=== PATIENT | female | born 1960 | race African-American/Black ===

== ENCOUNTER 2016-11-14 17:26 | Inpatient (IN) | payer MEDICARE ==
[~2016-11-14] VITALS: Ht 198.1 cm; Wt 100.0 kg
--- NOTE | ~2016-11-14 | OP ---
PATIENT NAME: AALIYAH MEDINA MEDICAL RECORD: [id number] :64 LOCATION:D.M2 D.2132 ADMISSION DATE:11/14/16 SURGEON: VENTURA MONTAGUE MD DATE OF OPERATION: 11/18/2016 ADDENDUM DESCRIPTION OF PROCEDURE: Under general anesthesia, the patient was prepped and draped in a sterile manner. I accessed the fistula with micropuncture technique and placed two 6-Sri Lankan introducers in opposing directions. I used an AngioJet catheter over a Glidewire to lyse thrombus and systemically heparinized the patient. Balloon angioplasty was performed of a venous outflow stenosis as well as intra-fistula stenosis and to macerate thrombus. Thrombus was aspirated and flow was initially restored more than once, but each time failed probably due to the extensive thrombus load and the outflow stenoses. It would not stay open. I did pass a guidewire and catheter selectively across the arterial anastomosis into the brachial artery and performed a selective brachial arteriogram before and after thrombolysis and thrombectomy to rule out arterial emboli and there were none. Flow to the hand was good. There was adequate flow in the brachial artery above and below the fistula and into the radial and ulnar arteries distally. In the next paragraph, there is one blank where the word should be "the Dacron cuff." TRANSINT:[id number] Voice Confirmation ID: [id number] DOCUMENT ID: [id number] VENTURA MONTAGUE MD CC: [id number] DICTATION DATE: 11/24/16 1534 PRIOR AUTHORIZATION TECHNICIAN: 11/24/16 2321 DIS IN 11/20/16 [facility] [address] [place] [address]
--- NOTE | 2016-11-14 18:20 | NUR ---
PT RECEIVED TO ROOM FROM ER. RR EVEN AND UNLABORED, BP IS ELEVATED. PT DENIES MYLES. REPORTS LEFT ARM PAIN ABOVE FISTULA. PT ALERT AND ORIENTED X4. WILL CTM PT CONDITION.
--- NOTE | 2016-11-14 18:35 | NUR ---
PAGED RACHAEL WHITEHEAD, PATIENT BP IS 204/91. 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 NO S/S AT THIS TIME.
--- NOTE | 2016-11-14 19:01 | NUR ---
SPOKE WITH RACHAEL, CLONODINE 0.1MG PO ORDERED AND NORCO ORDERED FOR PAIN.
--- NOTE | 2016-11-14 19:05 | NUR ---
DR TAYLOR NOTIFIED THAT PATIENT IS HERE.
[2016-11-14 19:56] LABS: BASOPHILS 0.2 % (0-2); HEMOGLOBIN 10.2 g/dL (12-16); IMMATURE GRANULOCYTES 0.3 % (0-5); LYMPHOCYTES 17.8 % (15-50); MCH 27.8 pg (26.0-34.0); MCHC 32.9 g/dL (31.0-37.0); MCV 84.5 fL (80.0-100.0); MEAN PLATELET VOLUME 11.9 fL (7.4-10.4); MONOCYTES 7.2 % (2-11); NEUTROPHILS 73.5 % (40-80); PLATELET COUNT 159 10x3/uL (130-400); RBC 3.67 10x6/uL (4.00-5.40); RDW 13.3 % (11.5-14.5); WBC 6.2 10x3/uL (4.8-10.8)
[2016-11-14 20:11] VITALS: BP 198/93
[2016-11-14 20:18] LABS: ALBUMIN 3.3 g/dL (3.4-5.0); BILIRUBIN - TOTAL 0.31 mg/dL (0.2-1.3); CALCIUM 7.7 mg/dL (8.5-10.1); CARBON DIOXIDE 18.9 mmol/L (21.0-32.0); CREATININE - SERUM 12.7 mg/dL (0.6-1.3); PROTEIN - SERUM 7.5 g/dL (6.4-8.2)
[2016-11-14 20:22] LABS: POTASSIUM - SERUM 6.9 mmol/L (3.5-5.1)
--- NOTE | 2016-11-14 20:51 | NUR ---
PT AWAKE, ALERT, ORIENTED, LEFT ARM SWOLLEN AND PAINFUL. PT DENIES ANY NEEDS AT THIS TIME. PT DOES REQUIRES MODERATE ASSISTANCE AT THIS TIME R/T HER RT BKA AND GENERALIZED WEAKNESS. CONTINUE TO MONITOR PT CLOSELY. BED LOW, CALL LIGHT IN REACH, SIDE RAILS X 2, HOB 30 DEGREES.
--- NOTE | 2016-11-14 21:31 | NUR ---
CONSENTS SIGNED FOR TRIALYSIS PLACEMENT, TELEMETRY PLACED, DR. TAYLOR CONSULTED AND ON HIS WAY TO DO TRIALYSIS PLACEMENT.
--- NOTE | 2016-11-14 22:51 | NUR ---
TRIALYSIS PLACED TO RT IJ BY DR. TAYLOR. PT CURRENTLY DIALYZING ORDERED. CONTINUE TO MONITOR PT CLOSELY. BED LOW, CALL LIGHT IN REACH, SIDE RAILS X 2, HOB 30 DEGREES. PT TOLERATED TRIALYSIS PLACEMENT WELL.
[2016-11-14 23:05] VITALS: BP 204/91; BMI 25.4
[2016-11-15] MEDS ORDERED: HYDROCODON-ACE1 EAC7 PO (00:26)
[2016-11-15] MEDS ORDERED: CATAPRES0.1 MG PO (00:26)
[2016-11-15] MEDS ORDERED: KAYEXALATE15 G/60 ML PO (00:27)
[2016-11-15] MEDS ORDERED: LOPRESSOR25 MG PO (00:28)
[2016-11-15] MEDS ORDERED: PROTONIX40 MG PO (00:28)
[2016-11-15] MEDS ORDERED: NORVASC10 MG PO (00:28)
[2016-11-15] MEDS ORDERED: GLYBURIDE5 M1 PO (00:29)
--- NOTE | 2016-11-15 04:14 | NUR ---
PT IS C/O BEING HUNGRY, SHE HAS NOT HAD ANYTHING TO EAT SINCE 0630 YESTERDAY MORNING. TURKEY SANDWICH GIVEN TO PT PER REQUEST. CONTINUE TO MONITOR PT CLOSELY.
[2016-11-15 05:15] VITALS: BP 166/88
--- NOTE | 2016-11-15 05:23 | NUR ---
PT IS AWAKE, ALERT, ORIENTED, STATES SHE IS FEELING MUCH BETTER, REQUESTING PAIN MEDICATION FOR HER LT ARM. DENIES ANY OTHER NEEDS. CONTINUE TO MONITOR CLOSELY. BED LOW, CALL LIGHT IN REACH, SIDE RAILS X 2, HOB 30 DEGREES.
[2016-11-15] MEDS ORDERED: LANTUS INSULIN10 ML SC (05:48)
[2016-11-15] MEDS ORDERED: AMBIEN10 MG PO (05:49)
[2016-11-15] MEDS ORDERED: NEURONTIN 300300 MG PO (05:49)
[2016-11-15] MEDS ORDERED: LIPITOR20 MG (05:50)
[2016-11-15] MEDS ORDERED: MYSOLINE 50 MG50 MG PO (05:51)
[2016-11-15 06:21] LABS: BASOPHILS 0 % (0-2); EOSINOPHILS 0.7 % (0-7); HEMATOCRIT 27.8 % (36.0-48.0); HEMOGLOBIN 9.2 g/dL (12-16); IMMATURE GRANULOCYTES 0.2 % (0-5); LYMPHOCYTES 16.8 % (15-50); MCHC 33.1 g/dL (31.0-37.0); MCV 84.8 fL (80.0-100.0); MEAN PLATELET VOLUME 11.9 fL (7.4-10.4); MONOCYTES 8.9 % (2-11); NEUTROPHILS 73.4 % (40-80); PLATELET COUNT 144 10x3/uL (130-400); RBC 3.28 10x6/uL (4.00-5.40); RDW 13.4 % (11.5-14.5); WBC 5.6 10x3/uL (4.8-10.8)
[2016-11-15 06:37] LABS: CALCIUM 7.5 mg/dL (8.5-10.1); PHOSPHOROUS 4.8 mg/dL (2.5-4.9)
[2016-11-15 06:38] LABS: ANION GAP 14.3 mmol/L (8-16); CARBON DIOXIDE 26.1 mmol/L (21.0-32.0); CREATININE - SERUM 8.4 mg/dL (0.6-1.3); POTASSIUM - SERUM 4.4 mmol/L (3.5-5.1)
--- NOTE | 2016-11-15 08:50 | NUR ---
CLONIDINE ADMINISTERED FOR SBP OF 203
--- NOTE | 2016-11-15 09:28 | NUR ---
MEDICATED FOR PAIN AND NAUSEA VIA TRIALYSIS AT THIS TIME. CALL LIGHT WITHIN REACH. NO DISTRESS.
[2016-11-15 09:34] VITALS: BP 203/107
--- NOTE | 2016-11-15 11:54 | NUR ---
FSBS 113. NO INSULIN COVERAGE PER SLIDING SCALE.
[2016-11-15 12:35] VITALS: Ht 198.1 cm; Wt 100.0 kg
[2016-11-15 13:51] VITALS: BP 132/88
--- NOTE | 2016-11-15 14:15 | NUR ---
RESTING IN BED WITH EYES CLOSED. EASILY AROUSED. SKIN WARM AND DRY. INCONTINENT CARE PROVIDED. CALL LIGHT WITHIN REACH. NO DISTRESS.
[2016-11-15 16:53] VITALS: BP 189/101
--- NOTE | 2016-11-15 17:02 | NUR ---
FSBS 76. NO INSULIN COVERAGE.
--- NOTE | 2016-11-15 17:16 | NUR ---
SITTING UP IN BED, 100 % PM MEAL CONSUMED. NO DISTRESS.
[2016-11-15 19:00] VITALS: BP 144/72
--- NOTE | 2016-11-15 20:39 | NUR ---
ALERT/ORIENTED. BEDTIME MEDS GIVEN. REQUESTED PAIN MEDS GIVEN FOR PAIN 8/10 TO LEFT UPPER ARM WHERE HER AVF IS WARM/SWOLLEN AND TENDER TO TOUCH. GAVE BUPRENEX 0.2MG SIVP VIA TRIALYSIS TO RIGHT IJ. HEMODIALYSIS PORTS ARE CAPPED AND CLAMPED. FSBS 91, HS SNACK TO BE GIVEN. SEE ASSESSMENT. MONITOR AND CPOC.
[2016-11-16] VITALS: BP 197/92
--- NOTE | 2016-11-16 01:31 | NUR ---
RESTING WITH NO DISTRESS. RIGHT IJ TRIALYSIS SALINE LOCKED. CPOC.
[2016-11-16 04:00] VITALS: BP 196/96
[2016-11-16 06:17] LABS: BASOPHILS 0.2 % (0-2); EOSINOPHILS 1.6 % (0-7); HEMATOCRIT 27.4 % (36.0-48.0); IMMATURE GRANULOCYTES 0.2 % (0-5); LYMPHOCYTES 33.5 % (15-50); MCHC 32.8 g/dL (31.0-37.0); MCV 85.4 fL (80.0-100.0); MEAN PLATELET VOLUME 11.6 fL (7.4-10.4); MONOCYTES 10.8 % (2-11); NEUTROPHILS 53.7 % (40-80); PLATELET COUNT 149 10x3/uL (130-400); RBC 3.21 10x6/uL (4.00-5.40); RDW 13.3 % (11.5-14.5); WBC 5.5 10x3/uL (4.8-10.8)
[2016-11-16 06:35] LABS: ANION GAP 16.6 mmol/L (8-16); CALCIUM 7.3 mg/dL (8.5-10.1); CARBON DIOXIDE 25.3 mmol/L (21.0-32.0); CREATININE - SERUM 9.9 mg/dL (0.6-1.3); POTASSIUM - SERUM 3.9 mmol/L (3.5-5.1)
[2016-11-16 06:41] LABS: PHOSPHOROUS 6.7 mg/dL (2.5-4.9)
--- NOTE | 2016-11-16 07:10 | NUR ---
RECEIVED REPORT. ASSUMED CARE OF PATIENT. CALL LIGHT WITHIN REACH. RESTING IN SUPINE POSITION WITH EYES CLOSED. EASILY AROUSED. DENIES NEEDS AT THIS TIME. NO DISTRESS.
[2016-11-16 08:13] VITALS: BP 167/81
--- NOTE | 2016-11-16 11:51 | NUR ---
FSBS 148. NO INSULIN COVERAGE REQUIRED PER SLIDING SCALE.
[2016-11-16 11:58] VITALS: BP 157/81
[2016-11-16 15:40] VITALS: BP 132/77
--- NOTE | 2016-11-16 16:56 | NUR ---
FSBS 97. NO INSULIN ADMINISTRATION PER SLIDING SCALE.
--- NOTE | 2016-11-16 17:55 | NUR ---
PATIENT STATES SHE FEELS LIKE HER SUGAR IS DROPPING. FSBS 72, DOWN FROM 96 AT 1630 AND PATIENT HAS EATEN PM MEAL. QUESTIONED PATIENT IS SHE ADHERES TO DIABETIC DIET AT HOME AND SHE STATES THAT SHE DOES NOT. WE ARE PROVIDING DIABETIC DIET AND INSULIN MAY BE TOO MUCH FOR HER. GLYBURIDE HELD DUE TO FSBS DROPPING FROM LANTUS GIVEN THIS AM. PATIENT CONSUMING CHOCOLATE PUDDING AT THIS TIME. CALL LIGHT WITHIN REACH. NO DISTRESS.
[2016-11-16 19:20] VITALS: BP 166/81
--- NOTE | 2016-11-16 19:30 | NUR ---
PT RESTING IN BED. ALERT/ORIENTED. RIGHT IJ TRIALYSIS WITH C/D/DRESSING. RESERVE LEFT ARM FROM SURGERY DONE TO LEFT AVF. 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 SR PER TELEMETRY. NO DISTRESS. SEE SHIFT ASSESSMENT. CPOC.
[2016-11-17 00:40] VITALS: BP 143/68
[2016-11-17 04:30] VITALS: BP 174/74
[2016-11-17 06:34] LABS: BASOPHILS 0 % (0-2); EOSINOPHILS 2.7 % (0-7); HEMATOCRIT 25.9 % (36.0-48.0); HEMOGLOBIN 8.5 g/dL (12-16); IMMATURE GRANULOCYTES 0.2 % (0-5); LYMPHOCYTES 30.9 % (15-50); MCH 28.1 pg (26.0-34.0); MCHC 32.8 g/dL (31.0-37.0); MCV 85.5 fL (80.0-100.0); MONOCYTES 11.2 % (2-11); PLATELET COUNT 170 10x3/uL (130-400); RBC 3.03 10x6/uL (4.00-5.40); RDW 13.4 % (11.5-14.5); WBC 4.7 10x3/uL (4.8-10.8)
[2016-11-17 06:47] LABS: ANION GAP 18.3 mmol/L (8-16); CALCIUM 7.4 mg/dL (8.5-10.1); CARBON DIOXIDE 24.2 mmol/L (21.0-32.0); PHOSPHOROUS 7.2 mg/dL (2.5-4.9); POTASSIUM - SERUM 3.5 mmol/L (3.5-5.1)
[2016-11-17 07:02] LABS: APTT 37.2 SECONDS (22.8-39.4); INR 0.89 (0.85-1.17); PROTIME 11.9 SECONDS (11.6-15.0)
--- NOTE | 2016-11-17 07:30 | NUR ---
AM ROUNDS- PT IN BED, DENIES ANY NEEDS AT THIS TIME. INFOMRED PT ABOUT BEING NPO UNTIL SEEN BY SURGERY DOCTOR. RESP EVEN AND UNLABORED, RT IJ TRIALYSIS SL. BED LOW AND WHEELS LOCKED, BEDSIDE RAILS X2, CALL LIGHT IN REACH, NAD NOTED, WILL CONTINUE TO MONITOR.
[2016-11-17 08:00] VITALS: BP 175/72
--- NOTE | 2016-11-17 09:35 | NUR ---
CALLED DR. CEJA OFFICE, SPOKE WITH DESIREE, ASKED DESIREE TO CHECK WITH DR. MONTAGUE IF HE IS PLANNING ON DOING ANYTHING WITH WITH ADAM TODAY BECAUSE PT WANTS TO KNOW IF SHE CAN EAT. DESIREE STATED THAT SHE WOULD CALL ME BACK.
--- NOTE | 2016-11-17 09:50 | NUR ---
PT TRANSFERED TO DIALYSIS VIA BED, NAD NOTED.
--- NOTE | 2016-11-17 12:46 | NUR ---
PT TRANSFERED BACK FROM DIALYSIS. LUNCH TRAY ORDERED FOR PT. PT DENIES ANY NEEDS AT THIS TIME. CALL LIGHT IN REACH, NAD NOTED, WILL CONTINUE TO MONITOR.
--- NOTE | 2016-11-17 16:13 | NUR ---
BLOOD SUGAR OF 138, NO COVERAGE NEEDED PER S/S. PT ALSO REFUSED TO TAKE DIABETA . STATED " I DONT WANT MY BLOOD SUGAR TO DROP LIKE IT DID LAST NIGHT". PT IN BED, DENIES ANY NEEDS AT THIS TIME. CALL LIGHT IN [facility], EROS NOTED, WILL CONTINUE TO MONITOR.
[2016-11-17 17:18] VITALS: BP 129/67
[2016-11-17 19:00] VITALS: BP 150/79
[2016-11-18] VITALS: BP 133/67
[2016-11-18 04:03] VITALS: BP 135/70
[2016-11-18 06:10] LABS: BASOPHILS 0.3 % (0-2); EOSINOPHILS 3.3 % (0-7); HEMATOCRIT 27.3 % (36.0-48.0); HEMOGLOBIN 8.8 g/dL (12-16); LYMPHOCYTES 34.7 % (15-50); MCH 27.9 pg (26.0-34.0); MCHC 32.2 g/dL (31.0-37.0); MCV 86.7 fL (80.0-100.0); MEAN PLATELET VOLUME 11.6 fL (7.4-10.4); MONOCYTES 11.8 % (2-11); NEUTROPHILS 49.9 % (40-80); PLATELET COUNT 184 10x3/uL (130-400); RBC 3.15 10x6/uL (4.00-5.40); RDW 13.4 % (11.5-14.5); WBC 3.6 10x3/uL (4.8-10.8)
[2016-11-18 06:56] LABS: ANION GAP 16.7 mmol/L (8-16); CALCIUM 7.4 mg/dL (8.5-10.1); CARBON DIOXIDE 26.9 mmol/L (21.0-32.0); CREATININE - SERUM 8.8 mg/dL (0.6-1.3); POTASSIUM - SERUM 3.6 mmol/L (3.5-5.1)
[2016-11-18 06:59] LABS: PHOSPHOROUS 5.3 mg/dL (2.5-4.9)
--- NOTE | 2016-11-18 07:32 | NUR ---
AM ROUNDS- PT IN BED, TALKING ON THE PHONE. BED LOW AND WHEELS LOCKED, BEDSIDE RAILS X2. RESP EVEN AND UNLABORED. PT DENIES ANY NEEDS AT THIS TIME. CALL LIGHT IN REACH, NAD NOTED, WILL CONTINUE TO MONITOR.
[2016-11-18 08:00] VITALS: BP 145/86
--- NOTE | 2016-11-18 11:34 | NUR ---
BLOOD SUGAR OF 136, NO COVERAGE NEEDED PER S/S. PT IN BED, DENIES ANY NEEDS AT THIS TIME. CALL LIGHT IN REACH, NAD NOTED, WILL CONTINUE TO MONITOR.
[2016-11-18 12:00] VITALS: BP 161/85
--- NOTE | 2016-11-18 13:41 | NUR ---
PT TRANSFERED TO OR VIA BED, NAD NOTED.
--- NOTE | 2016-11-18 16:31 | OP ---
PATIENT NAME: AALIYAH MEDINA MEDICAL RECORD: [id number] :64 LOCATION:D.M2 D.2132 ADMISSION DATE:11/14/16 SURGEON: ALOK TAYLOR MD DATE OF OPERATION: 11/14/2016 PREOPERATIVE DIAGNOSES: 1. End-stage renal disease. 2. Acute hyperkalemia. 3. Diabetes mellitus. 4. Coronary artery disease. 5. Peripheral vascular disease. 6. Hypertension. POSTOPERATIVE DIAGNOSES: 1. End-stage renal disease. 2. Acute hyperkalemia. 3. Diabetes mellitus. 4. Coronary artery disease. 5. Peripheral vascular disease. 6. Hypertension. PROCEDURE: Right IJ 12-1/2 cm Trialysis catheter placement. SURGEON: Alok Taylor MD. REPORT OF PROCEDURE: The patient's right neck was prepped and draped in sterile fashion. A 5 cc of 1% lidocaine was infused into the subcutaneous tissues. Using ultrasound guidance, a needle was used to cannulate the right internal jugular vein. The guidewire was advanced with ease. Over this wire, a dilator was placed followed by the Trialysis catheter. The catheter aspirated nonpulsatile dark blood and flushed easily in all 3 ports. This was sutured into place with 3-0 silk ties and dressed appropriately. COMPLICATIONS: None. CONDITION: Stable. ANESTHESIA: Local. BLOOD LOSS: Minimal. Procedure done at the bedside. TRANSINT:[id number] Voice Confirmation ID: [id number] DOCUMENT ID: [id number] ALOK TAYLOR MD at 1631 CC: [id number] DICTATION DATE: 11/14/162232 ENVIRONMENTAL SCIENCE INSTRUCTOR: 11/15/16 0948 ADM IN [facility] [address] [place] [address]
--- NOTE | 2016-11-18 17:17 | NUR ---
UNABLE TO OBTAIN BP UPON ARRIVAL TO PACU AFTER MULTIPLE ATTEMPTS. CUFFS CHANGED, CORDS CHANGED, MACHINES CHANGED. OBTAINED BP ON [employer]. BP TOO HIGH TO REGISTER ON OTHER MACHINES.
--- NOTE | 2016-11-18 17:57 | NUR ---
RECEIVED REPORT FROM OR FROM ROXANE WALLACE.
--- NOTE | 2016-11-18 18:22 | NUR ---
RECEIVED PT BACK TO ROOM 213, VIA BED, VITAL SIGNS STABLE, RT CHEST HEMISPLIT NOTED, WITH BLUE PORT ACCESS, INFUSING NS AT KVO. PT DENIES ANY NEEDS OR DISCOMFORTS. PT DENIES ANY NEEDS AT THIS TIME. CALL LIGHT IN REACH, NA DNOTED, WILL CONTINUE TO MONITOR.
--- NOTE | 2016-11-18 19:55 | NUR ---
PT ASLEEP.RESPIRATIONS EVEN AND UNLABORED. V/S 170/75 HR 95. IV INFUSING NS AT 5ML/HR TO RIGHT HEMESPLIT. PT WOKE TO LIGHT TOUCH. ASKED FOR SOMETHING FOR PAIN FOR HER NECK. WILL CHECK ORDERS. PT DENIES ANY OTHER NEEDS. NO S/S OF DISTRESS. CALL LIGHT IN REACH. WILL CPOC
--- NOTE | 2016-11-18 22:37 | NUR ---
PT RESTING IN BED. CHANGED LINEN AND GOWN. PT HAD AN ACCIDENT. PT BP IS 193/82 WILL GET PRN CATAPRES. PT DENIES ANY NEEDS. NO S/S OF DISTRESS. WILL CPOC
--- NOTE | 2016-11-18 23:20 | NUR ---
PT BLOOD SUGAR IS 246, PT REFUSES ANY INSULIN. STATES SHE WILL DROP OVER NIGHT AND BE LOW IN THE MORNING. PT STATES SHE WILL CALL IF SHE FEELS SHE NEEDS HER SUGAR CHECKED. PT DENIES ANY OTHER NEEDS. NO S/S OF DISTRESS. WILL CPOC
[2016-11-19] VITALS: BP 125/98
[2016-11-19 04:37] VITALS: BP 137/69
[2016-11-19 05:56] LABS: BASOPHILS 0 % (0-2); EOSINOPHILS 0 % (0-7); HEMATOCRIT 26.9 % (36.0-48.0); HEMOGLOBIN 8.7 g/dL (12-16); IMMATURE GRANULOCYTES 0.2 % (0-5); LYMPHOCYTES 10.5 % (15-50); MCHC 32.3 g/dL (31.0-37.0); MCV 86.5 fL (80.0-100.0); MEAN PLATELET VOLUME 11.3 fL (7.4-10.4); NEUTROPHILS 82.3 % (40-80); PLATELET COUNT 219 10x3/uL (130-400); RBC 3.11 10x6/uL (4.00-5.40); RDW 13.2 % (11.5-14.5)
[2016-11-19 06:02] LABS: WBC 4.7 10x3/uL (4.8-10.8)
--- NOTE | 2016-11-19 06:03 | NUR ---
PT RESTING IN BED. C/O PAIN 8/10 IN NECK. PAIN MEDS GIVEN ORDERED. PT DENIES ANY NEEDS. NO S/S OF DISTRESS. WILL CPOC
[2016-11-19 06:11] LABS: ANION GAP 17.6 mmol/L (8-16); CALCIUM 7.2 mg/dL (8.5-10.1); CARBON DIOXIDE 25.3 mmol/L (21.0-32.0); CREATININE - SERUM 10.7 mg/dL (0.6-1.3)
[2016-11-19 06:15] LABS: POTASSIUM - SERUM 4.9 mmol/L (3.5-5.1)
--- NOTE | 2016-11-19 07:45 | NUR ---
AM ROUNDS COMPLETED. INTRODUCED MYSELF TO PT PRIMARY RN FOR TODAYS SHIFT. PT A&O RESTING QUIETLY IN BED. SHIFT ASSESSMENT COMPLETED. ASSISTED PT ONTO BEDPAN. NO FURTHER NEEDS AT THIS TIME. WILL CPOC.
[2016-11-19 08:42] VITALS: BP 131/68
--- NOTE | 2016-11-19 09:26 | NUR ---
PT GOING DOWN TO DIALYSIS. PT READY AND DENIES ANY NEEDS. WILL CPOC.
--- NOTE | 2016-11-19 13:00 | NUR ---
PT BACK FROM DIALYSIS. VSS AND RESTING QUIETLY. DENIES ANY CURRENT NEEDS. WILL CTM.
[2016-11-19] MEDS ORDERED: TUMS500 MG PO (15:46)
--- NOTE | 2016-11-19 16:18 | NUR ---
[place] HAND WRITTEN SCRIPT PLACED IN CHART FOR DISCHARGE TOMORROW.
--- NOTE | 2016-11-19 17:16 | NUR ---
Patient Name: AALIYAH MEDINA Admission Status: ER Accout number: [id number] Admission Date: 11-14-2016 : 1960 Admission Diagnosis:UNSP COMP OF CARDIAC AND VASCULAR PROSTH DEV/GRFT, INIT Attending: Chuy Avina Current LOS: 5 Anticipated DC Date: 11-19-2016 Planned Disposition: Home Primary Insurance: MEDICARE A & B Discharge Planning Comments: * Is the patient Alert and Oriented? Yes 0 * How many steps to enter\\exit or inside your home? RAMP 0 * PCP DR. JAYLON NEWMAN 0 * Pharmacy [facility] 0 * Preadmission Environment Home with Family 0 * ADLs Independent 0 * Equipment Glucometer Other Walker 0 * Other Equipment [employer], [place] - MEDICAL EQUIPMENT PROVIDER 0 * List name and contact numbers for known caregivers / representatives who currently or will assist patient after discharge: TAVIA MEDINA, SPOUSE, 0 * Community resources currently utilized Other 0 * Please name any agencies selected above. OUTPATIENT DIALYSIS, [facility], [facility], [address], [place], [place] TRANSPORT 0 * Additional services required to return to the preadmission environment? No 0 * Can the patient safely return to the preadmission environment? Yes 0 * Has this patient been hospitalized within the prior 30 days at any hospital? No 0 CM MET WITH PT IN ROOM TO DISCUSS DISCHARGE PLANNING AND NEEDS. PT REPORTS LIVING AT HOME INDEPENDENTLY WITH JUVENILE SON FOR WHOM SHE IS A CAREGIVER. PT HAS GLUCOMETER, SCOOTER, WALKER, PROVIDER IS P & M IN [place]. PT REPORTS HAVING ALL NEEDED MEDICAL EQUIPMENT AND NO OUTSIDE SERVICES ASSISTING IN THE HOME. PT REPORTS HER SPOUSE DOES NOT LIVE WITH HER BUT IS "IN AND OUT" AND ASSISTS WITH THINGS NEEDED AROUND THE HOUSE. PT ATTENDS DIALYSIS IN [place], [facility], [address], WITH [facility] IN [place] SC[facility] TRANSPORTATION. CM DISCUSSED AVAILABILITY OF HOME HEALTH, REHAB SERVICES AND MEDICAL EQUIPMENT. PT DENIES DISCHARGE NEEDS,; CM OBSERVED THAT IT IS TOO LATE FOR [facility] IN [place] [employer] BUS TRANSPORT ARRANGEMENTS TO [place]. PT REPORTS HER SPOUSE WILL PICK HER UP FOR DISCHARGE HOME TOMORROW. IMPORTANT MESSAGE FROM MEDICARE PROVIDED AND EXPLAINED. Tire Inspector: Ozzie Cavanaugh
--- NOTE | 2016-11-19 18:04 | NUR ---
PT SITTING UP IN BED RESTING QUIETLY. PT STATES SHE HAS HAD A GOOD DAY OVERALL AND IS READY FOR DISCHARGE HOPING ON TOMORROW. PT DENIES ANY CURRENT PAIN OR NEEDS AT THIS TIME. CL IN REACH, BED IN LOWEST, SIDE RAILS X2 AND BUILT IN BED ALARM ON. WILL CPOC.
--- NOTE | 2016-11-19 19:20 | NUR ---
PT RESTING IN BED. DENIES ANY NEEDS AT THIS TIME. NO S/S OF DISTRESS.WILL CPOC
[2016-11-19 20:00] VITALS: BP 129/61
--- NOTE | 2016-11-19 21:24 | NUR ---
PT ASKS FOR A FORK TO EAT A SALAD. PT C/O PAIN. PT DENIES ANY NEEDS. NO S/S OF DISTRESS. WILL CPOC
--- NOTE | 2016-11-20 01:48 | NUR ---
PT C/O NOT BEING ABLE TO SLEEP. ASKS FOR SLEEPING MEDS. AMBIEN GIVEN. NO OTHER NEEDS. NO S/S OF DISTRESS. WILL CPOC
[2016-11-20 03:55] VITALS: BP 119/61
[2016-11-20 04:00] VITALS: BP 116/77
[2016-11-20 07:53] VITALS: BP 117/78
--- NOTE | 2016-11-20 08:15 | NUR ---
EATING BREAKFAST DENIES ANY NEEDS OR DISCOMFORT NAD NOTED
--- NOTE | 2016-11-20 10:06 | NUR ---
PATIENT IS ALERT AND RESTING WELL IN BED WATCHING TV, STATES SHE HOPES TO GO HOME TODAY. DENIES ANY PAIN OR NEEDS AT THIS TIME. CALL LIGHT IS IN REACH.
--- NOTE | 2016-11-20 12:05 | NUR ---
Patient discharged to home via wheelchair with spouse. Discharge instructions and rx for norco given to patient, patient verbalizes understanding.
== END 2016-11-20 12:08 | disposition home or self-care (01) | DRG 252 ==
LOC: D.ER 17:26 → EDSTATUS 17:53 → D.M2 17:59
PROVIDERS: ADMIT Internal Medicine Nephrology
PROC: 02HV33Z Insertion of Infusion Device into Superior Vena Cava, Percutaneous Approach (ICD-10-PCS; principal; 2016-11-14)
PROC: B548ZZA Ultrasonography of Superior Vena Cava, Guidance (ICD-10-PCS; 2016-11-14)
PROC: 03C83ZZ Extirpation of Matter from Left Brachial Artery, Percutaneous Approach (ICD-10-PCS; 2016-11-14)
PROC: 03783ZZ Dilation of Left Brachial Artery, Percutaneous Approach (ICD-10-PCS; 2016-11-18)
PROC: B51W1ZZ Fluoroscopy of Dialysis Shunt/Fistula using Low Osmolar Contrast (ICD-10-PCS; 2016-11-18)
PROC: 02HV33Z Insertion of Infusion Device into Superior Vena Cava, Percutaneous Approach (ICD-10-PCS; 2016-11-18)
PROC: B5181ZA Fluoroscopy of Superior Vena Cava using Low Osmolar Contrast, Guidance (ICD-10-PCS; 2016-11-18)
DX: T82.858A Stenosis of other vascular prosthetic devices, implants and grafts, initial encounter (principal); N18.6 End stage renal disease; I12.0 Hypertensive chronic kidney disease with stage 5 chronic kidney disease or end stage renal disease; Y83.8 Other surgical procedures as the cause of abnormal reaction of the patient, or of later complication, without mention of misadventure at the time of the procedure; E11.22 Type 2 diabetes mellitus with diabetic chronic kidney disease; Z99.2 Dependence on renal dialysis; Z79.4 Long term (current) use of insulin; I25.10 Atherosclerotic heart disease of native coronary artery without angina pectoris; D63.1 Anemia in chronic kidney disease; E83.39 Other disorders of phosphorus metabolism; E87.5 Hyperkalemia

== ENCOUNTER → 2018-03-18 08:29 | Outpatient (CLI) | payer MEDICARE ==
[2016-11-15 12:35] VITALS: BMI 25.4
[~2018-03-18 08:29] MED LIST: AMBIEN10 MG PO; CATAPRES0.1 MG PO; GLYBURIDE5 M1 PO; HYDROCODON-ACE1 EAC7 PO; KAYEXALATE15 G/60 ML PO; LANTUS INSULIN10 ML SC; LIPITOR20 MG; LOPRESSOR25 MG PO; MYSOLINE 50 MG50 MG PO; NEURONTIN 300300 MG PO; NORVASC10 MG PO; PROTONIX40 MG PO; TUMS500 MG PO
== END | disposition home or self-care (01) ==
LOC: D.CT 02-09 10:30
DX: N18.6 End stage renal disease (principal); Z99.2 Dependence on renal dialysis

== ENCOUNTER 2018-05-04 09:55 | Day surgery (SDC) | payer MEDICARE ==
[~2018-05-04] VITALS: Ht 198.1 cm; Wt 77.1 kg
[2018-05-04 10:37] LABS: BASOPHILS 0.3 % (0-2); EOSINOPHILS 1.1 % (0-7); HEMATOCRIT 34.6 % (36.0-48.0); HEMOGLOBIN 10.6 g/dL (12-16); LYMPHOCYTES 39.5 % (15-50); MCH 27.8 pg (26.0-34.0); MCHC 30.6 g/dL (31.0-37.0); MCV 90.8 fL (80.0-100.0); MEAN PLATELET VOLUME 11.6 fL (7.4-10.4); MONOCYTES 10.4 % (2-11); NEUTROPHILS 48.7 % (40-80); PLATELET COUNT 192 10x3/uL (130-400); RBC 3.81 10x6/uL (4.00-5.40); WBC 3.7 10x3/uL (4.8-10.8)
[2018-05-04 10:50] LABS: ANION GAP 16.8 mmol/L (8-16); CREATININE - SERUM 6.6 mg/dL (0.6-1.3); POTASSIUM - SERUM 4.8 mmol/L (3.5-5.1)
[2018-05-04 10:57] LABS: PROTIME 12.7 SECONDS (11.6-15.0)
[2018-05-04] MEDS ORDERED: ATARAX 25 MG TA25 MG PO (13:03)
[2018-05-04 13:19] VITALS: Ht 198.1 cm; Wt 77.1 kg
[2018-05-04] MEDS ORDERED: HYDROCODON-ACE1 EAC7 PO (18:32)
--- NOTE | 2018-05-04 19:09 | NUR ---
UPON ARRIVAL TO PACU PATIENT'S BP WAS ELEVATED. RONY WHITEHEAD CRNA ADMINISTERED HYDRALAZINE 10MG X1 IN PACU. WILL CONTINUE TO MONITOR.
--- NOTE | 2018-05-04 21:15 | NUR ---
2109 PT'S FAMILY RETURNED, BROUGHT PT Bebeto BURNETT, PT ATE, RELEASED IN WC.
--- NOTE | 2018-05-06 11:50 | OP ---
PATIENT NAME: IZABELLA RUSH MEDICAL RECORD: [id number] :64 LOCATION:[facility] ADMISSION DATE: SURGEON: VENTURA MONTAGUE MD DATE OF OPERATION: 05/04/2018 REFERRED BY: Dr. Mckay. PREOPERATIVE DIAGNOSIS: End-stage renal disease and dependence on hemodialysis and thrombosed arteriovenous graft in the left arm. POSTOPERATIVE DIAGNOSES: End-stage renal disease and dependence on hemodialysis and thrombosed arteriovenous graft in the left arm and axillary vein and subclavian vein stenoses. OPERATION PERFORMED: Open exposure and cannulation of left axillary vein and performance of intraoperative left axillary venogram followed to the superior vena cava and then open exposure and direct cannulation of the brachial artery just above the antecubital space and a brachial artery arteriogram and then followed by implantation of Artegraft between the axillary vein and the axillary artery. SURGEON: Ventura Montague MD ANESTHESIA: General with LMA per COLD HEADER OPERATOR. PREOPERATIVE NOTE: Izabella Rush is a 57-year-old -[place] female from [place], [place]. She has high blood pressure, diabetes, coronary artery disease, peripheral artery disease, and end-stage renal disease and dependence on hemodialysis and prior AV graft thromboses. She has had at least 2 PTFE grafts in the left arm over the last 4 or 5 years, both of which have thrombosed. She has a thrombus cephalic vein and cephalic arch which was previously stented and the stent is known to protrude into the subclavian vein. The patient needs long-term dialysis. She has been dialyzing with a catheter in the right internal jugular position, now for almost a year. I am going to try to implant another graft in her left arm. Hopefully, I can get above the operative changes from her previous grafts. I do think that because of the number of procedures she has had and central lines and stents, etc. that I should do a venogram and I plan also to do a brachial arteriogram because of the potential for brachial artery stenosis from prior arterial graft anastomosis. DESCRIPTION OF PROCEDURE: Under general anesthesia in supine position, the patient was prepped and draped in sterile manner. Previous vertical incision in the upper arm was reopened and extended into the axilla. The patient's axillary vein was dissected and exposed from high in the axilla down distally and 2 separate PTFE to vein anastomoses were exposed and the vein distal to that also was exposed and controlled with Silastic loops. Proximally, the vein was also dissected circumferentially and controlled with loops. The vein was of good caliber above the most proximal anastomosis about a centimeter or 12 mm in diameter perhaps. There was a good deal of inflammatory change around the old anastomoses. I basically excised the old most proximal graft to vein anastomosis and through that inserted a 6-Gambian introducer without need for a guidewire and then performed the venogram directly. The venogram demonstrated the CA stent protruding into the subclavian vein and a mild stenosis of the OPERATIVE REPORT [id number] IZABELLA RUSH A subclavian vein as it passes over the 1st rib. The vein was then flushed with heparinized saline and clamped. I then made another incision distally reopening prior incision and extending it distally into the antecubital space and I exposed the brachial artery at the prior PTFE brachial artery anastomosis. The artery was controlled proximally and distally with Silastic tapes and the old PTFE excised and the artery flushed proximally and distally with heparinized saline. Before that, though, I did an arteriogram with direct puncture of the artery with a 21-gauge micropuncture needle and inserted a 4-Gambian catheter and performed the brachial artery arteriogram with digital subtraction from the distal subclavian to the wrist and noted no lesions or stenoses within the brachial artery. There was good flow through 3 vessels into the forearm, although really only the radial artery reaches the hand. I then chose a Artegraft and bevelled the end and anastomosed it to the axillary vein at the site of the prior anastomosis, which had been totally excised. This was done with running 6-0 Prolene and is a very sebaceous anastomosis. The graft was placed in a very superficial subcutaneous tunnel, which passed outward and lateral to the old graft and came back down to the brachial artery. It was then flushed with heparinized saline and then shortened and slightly bevelled and anastomosed end-to-side to the brachial artery after the brachial artery was again flushed with heparinized saline. The last anastomosis was done with running 6-0 Prolene and when it was complete and the occluding clamps and loops were released, excellent flow developed immediately in the new graft and both suture lines were hemostatic. There was good continuous pulsatile Doppler flow in the graft and in the axillary vein proximal to the anastomosis, and in the brachial artery distal as well as proximal to the anastomosis. I also confirmed that there was radial artery pulsatile Doppler flow with and without the graft digitally occluded. The wounds were then closed without the use of a drain approximating subcutaneous tissues with interrupted inverted 3-0 Vicryl and running intracuticular 4-0 Monocryl for skin. The incisions were sealed further with Dermabond glue and dressed with Maxorb Ag, Tegaderm, and Cavilon skin prep. The patient was awakened and taken to the recovery room. Blood loss during the operation was about 10 cc, none replaced. Sponges, instruments, and needles were accounted for. No drain was used and no surgical specimen submitted for histopathology. PLAN: The patient will go home this evening. Tomorrow, she can go to dialysis as scheduled and continue all of her same meds and renal diet. I will be seeing her back in my office next week and I have left for her prescription for 20 tablets of Gordon 5/325. She can take 1 or 2 p.o. q.4 hours p.r.n. pain. TRANSINT:[id number] Voice Confirmation ID: [id number] DOCUMENT ID: [id number] cc: TESS Guillermo VENTURA MONTAGUE MD at 1150 CC: TESS GUILLERMO and EBENEZER OWENS [id number] DICTATION DATE: 05/04/181916 RV BODY MECHANIC: 05/05/18 0236 [facility] 05/04/18 [facility] [address] [place] [address]
== END 2018-05-04 21:10 | disposition home or self-care (01) ==
LOC: D.OPS 09:55
PROVIDERS: Surgery; ATTEND Internal Medicine Nephrology
DX: T82.868A Thrombosis due to vascular prosthetic devices, implants and grafts, initial encounter (principal); I87.1 Compression of vein; E11.22 Type 2 diabetes mellitus with diabetic chronic kidney disease; I12.0 Hypertensive chronic kidney disease with stage 5 chronic kidney disease or end stage renal disease; N18.6 End stage renal disease; Z99.2 Dependence on renal dialysis; I25.10 Atherosclerotic heart disease of native coronary artery without angina pectoris; I73.9 Peripheral vascular disease, unspecified; Z01.812 Encounter for preprocedural laboratory examination

== ENCOUNTER 2018-12-28 05:48 | Day surgery (SDC) | payer MEDICARE ==
[~2018-12-28] VITALS: Ht 198.1 cm; Wt 81.6 kg
[~2018-12-28 05:48] MED LIST changes: +ATARAX 25 MG TA25 MG PO
[2018-12-28 06:27] LABS: BASOPHILS 0.2 % (0-2); EOSINOPHILS 3.4 % (0-7); HEMATOCRIT 36.9 % (36.0-48.0); HEMOGLOBIN 11.5 g/dL (12-16); LYMPHOCYTES 45.1 % (15-50); MCH 29.4 pg (26.0-34.0); MCHC 31.2 g/dL (31.0-37.0); MCV 94.4 fL (80.0-100.0); MEAN PLATELET VOLUME 11.9 fL (7.4-10.4); MONOCYTES 9.7 % (2-11); NEUTROPHILS 41.6 % (40-80); PLATELET COUNT 175 10x3/uL (130-400); RBC 3.91 10x6/uL (4.00-5.40); RDW 13.2 % (11.5-14.5); WBC 4.7 10x3/uL (4.8-10.8)
[2018-12-28] MEDS ORDERED: XANAX0.25 MG PO (07:02)
[2018-12-28] MEDS ORDERED: ISOSORBIDE MONO30 M1 PO (07:03)
[2018-12-28 07:12] LABS: INR 0.94 (0.85-1.17)
[2018-12-28 07:13] LABS: ANION GAP 15.9 mmol/L (8-16); CALCIUM 8.6 mg/dL (8.5-10.1); CARBON DIOXIDE 26.8 mmol/L (21.0-32.0); CREATININE - SERUM 7.1 mg/dL (0.6-1.3); POTASSIUM - SERUM 4.7 mmol/L (3.5-5.1)
[2018-12-28 07:18] VITALS: Ht 198.1 cm; Wt 81.6 kg
--- NOTE | 2018-12-28 10:57 | NUR ---
DC INSTRUCTIONS GIVEN TO PT. STATES UNDERSTANDING. DC'D IV CATH FULLY INTACT.
--- NOTE | 2018-12-28 11:13 | NUR ---
PT LEFT UNIT VIA WC AT 1110
--- NOTE | 2019-01-07 08:11 | OP ---
PATIENT NAME: IZABELLA RUSH MEDICAL RECORD: [id number] :64 [facility] ADMISSION DATE: SURGEON: VENTURA MONTAGUE MD DATE OF OPERATION: 12/28/2018 REFERRED BY: Mickey Stewart MD and Dr. Thurston PREOPERATIVE DIAGNOSIS: Stenosis of dialysis access arteriovenous fistula, left arm. POSTOPERATIVE DIAGNOSIS: Stenosis of dialysis access arteriovenous fistula, left arm. OPERATIONS PERFORMED: Ultrasound-guided access with image documentation permanent record on paper and AV fistulogram with selective brachial artery arteriogram and balloon angioplasty. SURGEON: Ventura Montague MD ANESTHESIA: Regional nerve block plus MAC per PHARMACOLOGY PROFESSOR. PREOPERATIVE NOTE: Izabella Rush is a 58-year-old white female patient with end-stage renal disease, on chronic hemodialysis with a left AV fistula. She has had this banded before for steal syndrome but now has an adequate flow in her fistula. DESCRIPTION OF THE PROCEDURE: The fistula was accessed with ultrasound guidance and hard copy images on paper preserved in the patient's record. Micropuncture technique was used and a 6-Hungarian introducer was placed at the mid humeral level directed distally towards the anastomosis. Contrast was injected for performance of the fistulogram with images obtained with digital subtraction angiography. There is a stenosis distally in the JA segment, which is less than 4 mm in diameter and an area of prior banding. There was a 50% stenosis at the anastomosis of graft to the basilic vein and a 60% to 80% stenosis of the subclavian vein at the juncture of the cephalic arch and axillary vein due to protruding stent previously placed in the cephalic arch. Retrograde images were obtained by injecting contrast while occluding the venous outflow and this demonstrated the arterial anastomosis to be open and the brachial artery and flow into the hand without evidence of emboli. The distal brachial artery and radial artery are patent to the hand, but the palmar arch is not patent or intact. The ulnar artery is very small and occluded in the distal forearm. I performed a selective brachial artery arteriogram by manipulating a wire and guidewire across the arterial anastomosis and up into the proximal brachial artery and injecting contrast with and without occlusion of the venous outflow and obtained similar findings without any evidence of embolism or stenosis in the brachial artery. I then dilated the area of stenosis with a 4 mm diameter angioplasty balloon to reproduce the hemodynamics at least at that site, which would follow a Bolivar banding procedure. When that was completed, flow in the fistula was somewhat more robust with a stronger thrill and pulsation. The hardware was removed. Hemostasis obtained with a [id number] 4-0 Prolene suture and a sterile dressing applied and the patient was taken to the recovery room in stable condition. OPERATIVE REPORT [id number] IZABELLA RUSH The patient will be discharged to home today and continue her same medicines and diet and dialysis schedule. I believe we will try to continue using her present fistula without further intervention beyond the application of nitroglycerin ointment to the hand once or twice daily. Considerations at this point would be implantation of a new thigh graft or implantation of a right arm AV graft or proximalization of the arterial inflow in the left arm AV graft. The latter would require exposure and suturing of a new graft limb on to the axillary artery, which with the old scar and adhesions likely present might be difficult. Operation in her axilla and upper arm on the right will certainly require general anesthesia and then probably a thigh graft could be done with epidural and may be a femoral block anesthetic and IV sedation. There was minimal blood loss during the procedure. No specimens were obtained. No drain was used. All sponges, instruments and needles were accounted for. TRANSINT:[id number] Voice Confirmation ID: [id number] DOCUMENT ID: [id number] VENTURA MONTAGUE MD at 0811 CC: [id number] DICTATION DATE: 01/05/19 1543 YACHT MASTER: 01/06/19 0007 [facility] 12/28/18 [facility] [address] [place] [address]
== END 2018-12-28 11:10 | disposition home or self-care (01) ==
LOC: D.OPS 05:48
PROVIDERS: Surgery; ATTEND Internal Medicine Nephrology
DX: T82.898A Other specified complication of vascular prosthetic devices, implants and grafts, initial encounter (principal); Y83.9 Surgical procedure, unspecified as the cause of abnormal reaction of the patient, or of later complication, without mention of misadventure at the time of the procedure; E11.22 Type 2 diabetes mellitus with diabetic chronic kidney disease; I12.0 Hypertensive chronic kidney disease with stage 5 chronic kidney disease or end stage renal disease; N18.6 End stage renal disease; E11.51 Type 2 diabetes mellitus with diabetic peripheral angiopathy without gangrene; I25.10 Atherosclerotic heart disease of native coronary artery without angina pectoris

== ENCOUNTER 2019-02-22 09:36 | Day surgery (SDC) | payer MEDICARE ==
[~2019-02-22] VITALS: Ht 198.1 cm; Wt 81.6 kg
[~2019-02-22 09:36] MED LIST changes: +ISOSORBIDE MONO30 M1 PO; +XANAX0.25 MG PO
[2019-02-22 09:59] LABS: BASOPHILS 0.2 % (0-2); EOSINOPHILS 1.1 % (0-7); HEMATOCRIT 30.6 % (36.0-48.0); HEMOGLOBIN 9.8 g/dL (12-16); IMMATURE GRANULOCYTES 0.2 % (0-5); LYMPHOCYTES 22.8 % (15-50); MCH 29.3 pg (26.0-34.0); MCV 91.3 fL (80.0-100.0); MEAN PLATELET VOLUME 11.1 fL (7.4-10.4); MONOCYTES 10.2 % (2-11); NEUTROPHILS 65.5 % (40-80); RBC 3.35 10x6/uL (4.00-5.40); RDW 13.6 % (11.5-14.5); WBC 5.5 10x3/uL (4.8-10.8)
[2019-02-22 10:14] LABS: ANION GAP 16.6 mmol/L (8-16); CALCIUM 8.6 mg/dL (8.5-10.1); CARBON DIOXIDE 24.5 mmol/L (21.0-32.0); CREATININE - SERUM 10.1 mg/dL (0.6-1.3); POTASSIUM - SERUM 5.1 mmol/L (3.5-5.1)
[2019-02-22 10:27] LABS: INR 1.08 (0.85-1.17); PROTIME 13.5 SECONDS (11.6-15.0)
[2019-02-22 10:42] LABS: PLATELET COUNT 228 10x3/uL (130-400)
[2019-02-22 11:46] VITALS: Ht 198.1 cm; Wt 81.6 kg
[2019-02-22] MEDS ORDERED: HYDROCODON-ACE1 EAC7 PO (16:23)
--- NOTE | 2019-02-22 17:45 | NUR ---
1720 DR. CLARI VALDEZ.
--- NOTE | 2019-02-22 17:53 | NUR ---
175 LUIGI ROBLERO APN NOTIFIED OF MESSAGE FOR [facility] TO CLEAN WOUNDS LEFT CHEST/NECK WITH HIBICLENS AND REDRESS WITH ANTIBIOTIC OINTMENT AT EACH DIALYSIS SESSION.
--- NOTE | 2019-02-28 16:17 | OP ---
PATIENT NAME: AALIYAH RUSH MEDICAL RECORD: [id number] :64 LOCATION:[facility] ADMISSION DATE: SURGEON: VENTURA MONTAGUE MD DATE OF OPERATION: 02/22/2019 REFERRED BY: Kika Florez DO PREOPERATIVE DIAGNOSIS: End-stage renal disease and dependence on hemodialysis with a dysfunctional left internal jugular HemoSplit tunneled dialysis catheter and thrombosed left arm AV graft and history of steal syndrome in the left arm. POSTOPERATIVE DIAGNOSIS: End-stage renal disease and dependence on hemodialysis with a dysfunctional left internal jugular HemoSplit tunneled dialysis catheter and thrombosed left arm AV graft and history of steal syndrome in the left arm. OPERATION PERFORMED: Exploration of the left axilla with the intent of implanting an AV graft for dialysis access. The procedure was abandoned or terminated due to extensive scarring from prior vascular access operations in that region. Then, also exchange of left internal jugular HemoSplit catheter under fluoroscopy. SURGEON: Ventura Montague MD ANESTHESIA: General per OPERATING ENGINEER with LMA. PREOPERATIVE NOTE: Ms. Rush is a 58-year-old female with diabetes and hypertension and generalized atherosclerotic cardiovascular disease, who has had several failed dialysis accesses in both upper extremities. Most recently, she had had an AV graft in her left arm, which had functioned well, but did cause steal syndrome which was partially relieved by banding, but then that led to thrombosis of the fistula that along with proximal venous outflow obstruction due to recurrent strictures and stenoses round stents. She has been dialyzing for several weeks now with a left internal jugular HemoSplit catheter, which I just learned today. It is not functioning well and needs to be exchanged. She is brought back to the hospital electively with plans to try to explore the left axilla to see if we can find vessels to use for our loop graft. Under anesthesia, the patient was prepped and draped in sterile manner. I reopened a proximal longitudinal incision and exposed previous graft to basilic vein anastomosis, which had been stented and tried to dissect this free of surrounding structures and found that really to the embedded in very dense scar, especially the axillary artery was difficult to palpate and defect and we eventually abandoned efforts to go back through this hostile axilla. The wound was infiltrated with 0.25% Marcaine without epinephrine and irrigated with Ancef/gentamicin solution and closed with interrupted inverted 3-0 Vicryl and running intracuticular 4-0 StrataFix. It was sealed with Dermabond glue and dressed with Maxorb Ag, Tegaderm, and Cavilon skin prep. The patient was then repositioned and the left internal jugular catheter was addressed. An incision was placed over the Dacron felt cuff, which was very high in the tunnel and the catheter was dissected from surrounding structures, clamped, and divided. The external segment was discarded and the intravascular segment then removed over a guidewire, which under fluoroscopy was placed in the inferior vena cava. I chose a new 23 cm HemoSplit made a new entry site and OPERATIVE REPORT [id number] AALIYAH RUSH placed the catheter through a new subcutaneous tunnel up to the old cuff location and then inserted that over the guidewire and positioned its tip deep in the right atrium. Both lumens were accessed and aspirated, free return of blood confirmed. They were then flushed with saline and heparin locked, clamped and capped. The insertion site incision and the site of dissecting the cuff, those incisions were closed with interrupted inverted 3-0 Vicryl and interrupted 4-0 Prolene. The catheter was sutured to the skin near the entry site with 2-0 Prolene. The wounds were then all dressed with Bactroban ointment, Maxorb, and Tegaderm. The patient was awakened and in stable condition returned to the recovery room. Blood loss during the entire operation was on the order of 5 mL and unreplaced. Sponges, instruments, and needles were accounted for. No drain was used and no surgical specimen was submitted. PLAN: The patient will remain catheter dependent for now, I believe she is going to need a thigh graft probably in March. For now, we will just ask her dialysis nurses in [place] to see that her catheter site and the 2 adjacent wounds are cleaned at each dialysis session with Hibiclens and carefully redressed. I will see her back in my office in 2 weeks and plan to remove sutures at that time, and at that time, we will discuss scheduling her for another access operation. TRANSINT:[id number] Voice Confirmation ID: [id number] DOCUMENT ID: [id number] VENTURA MONTAGUE MD at 4458 CC: KIKA FLOREZ DO [id number] DICTATION DATE: 02/22/19 4006 SUPERVISOR GROUNDS: 02/23/[address] [facility] 02/22/19 [facility] [address] [place] [address]
== END 2019-02-22 19:00 | disposition home or self-care (01) ==
LOC: D.OPS 09:36
PROVIDERS: ATTEND Internal Medicine
DX: N18.6 End stage renal disease (principal); Z99.2 Dependence on renal dialysis; E11.22 Type 2 diabetes mellitus with diabetic chronic kidney disease; I12.0 Hypertensive chronic kidney disease with stage 5 chronic kidney disease or end stage renal disease